=== PATIENT | female | born 1985 ===

== ENCOUNTER 2024-12-31 17:37 | Outpatient (REF) | payer OTHER, SELFPAY ==
--- OUTSIDE RECORDS SUMMARY | 2024-12-26 13:01 | XMS_ITS | Encounter Summary ---
Author Organization [facility] Address [address] [place] [address] Care Team Providers Care Cra Officer Name Role Phone Physician, Pcp Unknown Primary Care Provider Giselle vailable Reason for Visit * Reason Comments IV Medication PT HAS PICC FOR IV V ANCO, PT'S OWN SUPPLY IS FROZEN AND HAS DOSE DUE AT 1400 TODAY Encounter Details Date Type Department Care Team (Late st Contact Info) Description 12/26/2024 1:01 PM EDT - 12/26/2024 3:33 PM EDT Emergency [facility] [address] [place] [address] Jax Crandall MD [address] [place] [address] Bacteremia (Primary Dx) Discharge Disposition: Home or Self Care Social History Tobacco Use Types Packs/Day Years Used Date Smoking Tobacco: Never Smokeless Tobacco: Never Alcohol Use Standard Drinks/Week Comments Never 0 (1 standard drink = 0.6 oz pur e alcohol) Interpersonal Safety Answer Date Record ed Physical Abuse Unrecognized value 12/21/2024 Verbal Abuse Unrecognized value 12/21/2024 Comments Unknown Sex and Gender Information Value Date Recorded Sex Assigned at Not on file Legal Sex Female 5:58 AM EST Gender Identity Not on file Sexual Orientation Not on file documented as of this encounter Last Filed Vital Signs Vital Sign Reading Time Taken Comments Blood Pressure 133/85 12/26/2024 1:15 PM EDT Pulse 102 12/26/2024 1:15 PM EDT Temperature 37.2 C (99 F) 12/26/2024 1:15 PM EDT Respiratory Rate 18 12/26/2024 1:15 PM EDT Oxygen Saturation 97% 12/26/2024 1:15 PM EDT Inhaled Oxygen Concentration - - Weight 81.2 kg (179 lb) 12/26/2024 1:15 PM EDT Height 157.5 cm (5' 2 ) 12/26/2024 1:15 PM EDT Body Mass Index 32.74 12/26/2024 1:15 PM EDT documented in this encounter Functional Status * Calculated C-SSRS Risk Score (Lifetime/Recent) Answer Date of Assessment Author No Risk Indicated 12/26/2024 1:00 PM EDT Reggie Torrez RN * [place] Suicide Severity Rating Scale (Screener/Recent Self-Report) Question Answer Date of Assessment Author 1. Wish to be (Past 1 Month) No 025 1:00 PM EDT Reggie Torrez RN 2. Non-Specific Active Suici kirby Thoughts (Past 1 Month) No 12/26/2024 1:00 PM EDT Reggie Torrez RN 6. Suicidal Behavior (Lifetime) No 1:00 PM EDT Reggie Torrez RN documented as of this encounter Discharge Instructions * Discharge Instructions* Jax Crandall MD - 12/26/2024 1:37 PM EDT DIAGNOSIS / RESULTS / PROCEDURES (what was done): You came to the ED for a dose of IV antibiotics. You received your dose and are being discharged. INSTRUCTIONS (what you need to do): If your symptoms get worse, or you have any new or different concerns, return to the ED immediately. MEDICATIONS (what you need to take): No medications were added at this visit. Continue taking any prescription medications as prescribed documented in this encounter Medications at Time of Discharge Adderall XR 30 mg 24 hr capsule Take 1 capsule (30 mg total) by mouth 1 (one) time each day in the morning. 03/04/2024 cloNIDine (CATAPRES) 0.1 mg tablet Take 1 tablet (0.1 mg total) by mouth 2 (two) times a day. 12/20/2024 hydrOXYzine pamoate (VISTARIL) 25 mg capsule Take 1 capsule (25 mg total) by mouth. 03/04/2024 vancomycin 1,000 mg in sodium chloride 0.9 % 250 mL IVPB Infuse 1,000 mg into a venous catheter every 8 (eight) hours for 13 days. Stop date 01/0612/25/2024 01/07/2025 documented as of this encounter Discharge Disposition Disposition Code Departure Means Destination Comment s Home or Self Care documented in this encounter Progress Notes * Sri Lara RN - 12/26/2024 1:44 PM EDT PICC LINE DRESSING CHANGED. * Reggie Torrez RN - 12/26/2024 1:00 PM EDT Patient presents to receive her dose of iv antibiotics. Vanco that was sent home is frozen. Nikhil picc line to right arm * Jax Crandall MD - 12/26/2024 12:55 PM EDT Emergency Medicine Note Patient Name: Nevaeh Collier Initial Evaluation: 12/26/2024 : 1985 Patient's PCP: Pcp Unknown Physician Emergency Physician: Jax Crandall MD History of Present Illness Chief Complaint: Chief Complaint Patient presents with IV Medication PT HAS PICC FOR IV VANCO, PT'S OWN SUPPLY IS FROZEN AND HAS DOSE DUE AT 1400 TODAY HPI: 39-year-old female, recent hospitalization for pyelonephritis and infected kidney stone, discharged on vancomycin for bacteremia presents for IV antibiotic dose. Patient currently receiving vancomycin 1 g every 8 hours. The patient's last dose at home was accidentally placed in the freezer. She is getting another shipment from [email or web address] but would not arrive in time for her afternoon dose. Denies any fevers chills new symptoms or complaints. Previous History Medical History[1] Surgical History[2] Social History[3] Family History[4] is allergic to zofran [ondansetron hcl]. Medications Ordered Prior to Encounter[5] Physical Exam ED Triage Vitals [12/26/24 1315] Temp Heart Rate Resp BP 37.2 ??C (99 ??F) 102 18 133/85 SpO2 Temp Source Heart Rate Source Patient Position 97 % Oral -- Sitting BP Location FiO2 (%) Left arm -- GENERAL: Well-Appearing SKIN: Warm, dry, normal for ethnicity. No rashes. Right upper extremity PICC line in place, no surrounding erythema warmth fluctuance induration. HEENT: Normal sclera, noninjected nonicteric CHEST: Normal peripheral perfusion, no edema PULMONARY: Normal respiratory effort ABDOMINAL: Nondistended NEURO: Alert and oriented, moving all extremities equally PSYCHIATRIC: Normal affect, fluid speech, good eye contact and appropriate demeanor. Results Labs Reviewed - No data to display Abnormal Labs Reviewed - No data to display No orders to display I have discussed the incidental/abnormal imaging and/or lab abnormalities with the patient and haveinstructed them the need for further evaluation and workup with their primary care doctor. Medical Decision Making Differential Diagnosis: Bacteremia, pyelonephritis MDM: 39-year-old female with bacteremia and pyelonephritis currently taking vancomycin 1 g every 8 hours presents for IV medication dosing. Will plan to give patient her vancomycin dose. She is not have any new symptoms concerning for worsening infection, no labs indicated. Clinical Impression: Bacteremia SEPSIS Exemption: [ x ] It is unlikely this patient has sepsis at the time of my evaluation. Medications heparin (PF) 100 unit/mL flush 300 Units (has no administration in time range) vancomycin (VANCOCIN) 1,000 mg in sodium chloride 0.9 % 250 mL IVPB (1,000 mg intravenous New Bag 12/26/24 1340) Clinical Impressions as of 12/26/24 1518 Bacteremia Procedures Procedures Diagnosis 1. Bacteremia Disposition Discharge ED Prescriptions None Jax Crandall MD 12/26/24 1341 [1] Past Medical History: Diagnosis Date Kidney stones [2] History reviewed. No pertinent surgical history. [3] Social History Tobacco Use Smoking status: Never Smokeless tobacco: Never Substance Use Topics Alcohol use: Never Drug use: Never [4] No family history on file. [5] Current Facility-Administered Medications on File Prior to Encounter Medication Dose Route Frequency Provider Last Rate Last Admin [DISCONTINUED] acetaminophen (TYLENOL) tablet 650 mg 650 mg oral q6h PRN Bobby Hawk MD 650 mg at12/22/24 1522 [DISCONTINUED] amphetamine-dextroamphetamine XR (ADDERALL XR) 24 hr capsule 30 mg 30 mg oral q AM Laureen Gibbons NP [DISCONTINUED] cloNIDine (CATAPRES) tablet 0.1 mg 0.1 mg oral BID LATOSHA Fish 0.1 mg at 12/24/242101 [DISCONTINUED] doxylamine (UNISOM) tablet 25 mg 25 mg oral Nightly PRN LATOSHA Shaver 25 mg at12/24/242213 [DISCONTINUED] enoxaparin (LOVENOX) injection 40 mg 40 mg subcutaneous Nightly LATOSHA Fish 40 mg at 12/24/242101 [DISCONTINUED] HYDROmorphone (DILAUDID) injection 0.5 mg 0.5 mg intravenous q4h PRN Bobby Hawk MD 0.5 mg at 12/22/242153 [DISCONTINUED] HYDROmorphone (DILAUDID) injection 1 mg 1 mg intravenous q4h PRN Bobby Hawk MD 1 mg at 12/24/24 0015 [DISCONTINUED] metoclopramide (REGLAN) injection 10 mg 10 mg intravenous q6h PRN Laureen Gibbons NP [DISCONTINUED] vancomycin (VANCOCIN) 1,000 mg in sodium chloride 0.9 % 250 mL IVPB 1,000 mg intravenous q8h Alia Lam MD Stopped at 12/25/24 1532 Current Outpatient Medications on File Prior to Encounter Medication Sig Dispense Refill Adderall XR 30 mg 24 hr capsule Take 1 capsule (30 mg total) by mouth 1 (one) time each day in the morning. cloNIDine (CATAPRES) 0.1 mg tablet Take 1 tablet (0.1 mg total) by mouth 2 (two) times a day. hydrOXYzine pamoate (VISTARIL) 25 mg capsule Take 1 capsule (25 mg total) by mouth. vancomycin 1,000 mg in sodium chloride 0.9 % 250 mL IVPB Infuse 1,000 mg into a venous catheter every 8 (eight) hours for 13 days. Stop date 01/06 Jax Crandall MD 12/26/24 0058 documented in this encounter Plan of Treatment Not on file documented as of this encounter Visit Diagnoses Diagnosis Bacteremia- Primary documented in this encounter Administered Medications Inactive Administered Medications - up to 3 most recent administrations Medication Order MAR Action Action Date Dose Rate Site heparin (PF) 100 unit/mL flush 300 Units 300 Units (3 mL), intra-catheter, Once, On Avril 12/26/24 at 1346, For 1 dose Given 12/26/2024 3:31 PM EDT 300 Units vancomycin (VANCOCIN) 1,000 mg in sodium chloride 0.9 % 250 mL IVPB 1,000 mg, intravenous, at 250 mL/hr, Administer over 60 Minutes, Once, On Avril 12/26/24 at 1308, For 1 dose, Indication: Urinary Tract/Genitourinary New Bag 12/26/2024 1:40 PM EDT 1,000 mg 250 mL/hr documented in this encounter Active and Recently Administered Medications Times are shown in EDT. Scheduled Medication Order 12/24/2024 12/25/2024 12/26/2024 heparin (PF) 100 unit/mL flush 300 Units (COMPLETED) 300 Units (3 mL), intra-catheter, Once, On Avril 12/26/24 at 1346, For 1 dose 1531 (Given - Provid er: Joelle Zaidi RN) vancomycin (VANCOCIN) 1,000 mg in sodium chloride 0.9 % 250 mL IVPB (COMPLETED) 1,000 mg, intravenous, at 250 mL/hr, Administer over 60 Minutes, Once, On Avril 12/26/24 at 1308, For 1 dose, Indication: Urinary Tract/Genitourinary 1340 (New Bag - Prov ider: Sri Lara RN)1533 (Stopped - Provider: Joelle Zaidi RN) documented in this encounter Care Teams Cra Officer Relationship Specialty Start Date End Date Physician, Pcp Unknown PCP - General 12/21/24 documented as of this encounter
[2024-12-31 18:47] LABS: MANUAL DIFF FLAG NO
[2024-12-31 18:54] LABS: Hematocrit 35.7 % (37.0-47.0); Hemoglobin 12.2 g/dl (12.0-16.0); Imm Gran Abs Auto 0.07 X10*3/uL (0.00-0.03); Imm Gran Pct Auto 0.6 % (0.0-0.4); Lymphocytes Absolute Auto 1.9 X10*3/uL (1.2-4.9); Mean Corpuscular HGB Conc 34.2 g/dl (31.0-35.0); Mean Corpuscular Hemoglobin 30.3 pg (27.0-33.0); Mean Corpuscular Volume 88.8 fL (80.0-98.0); NRBC Abs Auto 0.000 X10*3/uL (0.0-0.012); NRBC Pct Auto 0.0 /100WBC (0.0-0.2); Platelet Count 408 X10*3/uL (160-400); Red Blood Count 4.02 X10*6/uL (4.20-5.50); White Blood Count 11.1 X10*3/uL (4.8-10.8)
--- OUTSIDE RECORDS SUMMARY | 2024-12-31 19:07 | XMS_ITS | Clinical Summary ---
Author Organization [facility] Address [address] [place] [address] Phone Care Team Providers Care Installation Tech Name Role Phone Physician, Pcp Unknown Primary Care Provider Giselle vailable Allergies Active Allergy Reactions Criticality Noted Date Comments Ondansetron Hcl Nausea And Vomiting 10/14/2024 Medications cloNIDine (CATAPRES) 0.1 mg tablet Take 1 tablet (0.1 mg total) by mouth 2 (two) times a day. 12/20/2024 Active Adderall XR 30 mg 24 hr capsule Take 1 capsule (30 mg total) by mouth 1 (one) time each day in the morning. 03/04/2024 Active hydrOXYzine pamoate (VISTARIL) 25 mg capsule Take 1 capsule (25 mg total) by mouth. 03/04/2024 Active vancomycin 1,000 mg in sodium chloride 0.9 % 250 mL IVPB Infuse 1,000 mg into a venous catheter every 8 (eight) hours for 13 days. Stop date 01/0612/25/2024 01/08/20 25 Active Active Problems Problem Noted Date Diagnosed Date Pyelonephritis 12/21/2024 Encounters Date Type Department Care Team Description 12/30/2024 Telephone Infectious Disease - [place] [address] [place] [address] Jose L Chahal LPN 12/26/2024 1:01 PM EDT - 12/26/2024 3:33 PM EDT Emergency [facility] Emergency [address] [place] [address] Jax Cranadll MD Bacteremia (Primary Dx) Discharge Disposition: Home or Self Care 12/21/2024 7:41 PM EDT Anesthesia Event [facility] Main OR [address] [place] [address] Al RonnieDO 12/21/2024 7:00 PM EDT - 12/21/2024 7:50 PM EDT Surgery [facility] Main OR [address] [place] [phone] Bobby Hawk MD CYSTOSCOPY,LEFT RETROGRADE, LEFT STENT PLACEMENT 12/21/2024 3:05 PM EDT - 12/25/2024 4:35 PM EDT Hospital Encounter [facility] [address] [place] [phone] Jude Stearns MD Zipagan, James T, MD Seralathan, Manikandan, MD Pyelonephritis (Primary Dx); Kidney stone on left side; Calculus of left kidney; Bacteremia Discharge Disposition: Home-Health Care [facility] [place] 10/14/2024 8:10 PM EDT - 10/14/2024 11:44 PM EDT Emergency [facility] Emergency [address] [place] [phone] Jax Crandall MD Kidney stone (Primary Dx); Right lower quadrant abdominal pain Discharge Disposition: Home or Self Care from Last 3 Months Medical History Medical History Date Comments Kidney stones Social History Tobacco Use Types Packs/Day Years Used Date Smoking Tobacco: Never Smokeless Tobacco: Never Tobacco Cessation:Counseling Given: Not Answered Alcohol Use Standard Drinks/Week Comments Never 0 (1 standard drink = 0.6 oz pur e alcohol) Interpersonal Safety Answer Date Record ed Physical Abuse Unrecognized value 12/21/2024 Verbal Abuse Unrecognized value 12/21/2024 Comments Unknown Sex and Gender Information Value Date Recorded Sex Assigned at Not on file Legal Sex Female 5:58 AM EST Gender Identity Not on file Sexual Orientation Not on file Obstetrics History Last Filed Vital Signs Vital Sign Reading [...] Mass Index 32.74 12/26/2024 1:15 PM EDT Plan of Treatment Health Maintenance Due Date Last Done Comments Breast Cancer Screening 1984 Cervical Cancer Screening: Pap Smear 2005 Hepatitis B Vaccines (2 of 3 - 19+ 3-dose series) 09/29/2010 09/01/2010 HPV Vaccines (1 - 3-dose SCDM series) 10/11/2011 Cholesterol Screening (Lipid Panel) 02/27/2022 HIV Screening 02/27/2022 Hepatitis C Screening 02/27/2022 Social Influencers of Health Screening 02/27/2022 Depression Screening 03/27/2024 COVID-19 Vaccine ( - 2024- season) 2024 06/27/2022, 10/16/2020, 09/25/2020 Influenza Vaccine (#1) 2024 , 01/25/2016, 02/04/2015, Additional history exists Hypertension/CHF/CAD Annual BMP Blood Test 12/25/2025 12/25/2024, 12/24/2024, 12/23/2024, Additional history exists DTaP,Tdap,and Td Vaccines (4 - Td or Tdap) 12/29/2030 12/29/2020, 06/06/2016, 10/01/2011 RSV Immunization Adult Patients (1 - 1-dose 75+ series) 10/11/2059 MMR Vaccines Aged Out 03/05/2021, 09/01/2010 No lo nger eligible based on patient's age to complete this topic HIB Vaccines Aged Out No longer eligi ble based on patient's age to complete this topic Hepatitis A Vaccines Aged Out No long er eligible based on patient's age to complete this topic IPV Vaccines Aged Out No longer eligi ble based on patient's age to complete this topic Meningococcal ACWY Vaccine Aged Out N o longer eligible based on patient's age to complete this topic Meningococcal B Vaccine Aged Out No l onger eligible based on patient's age to complete this topic Pneumococcal Vaccine: Pediatrics (0 to 5 Years) and At-Risk Patients (6 to 49 Years) Aged Out No longer eligible based on patient's age to complete this topic RSV Immunization Patients Under 20 months Aged Out No longer eligible based on patient's age to complete this topic Varicella Vaccines Aged Out No longer eligible based on patient's age to complete this topic Medical Devices Implanted Type Area Sky Line Yarder Device Identifier Shelf Expiration Date Model / Serial / Lot Stent Uret Stretch Vl 7fr 22-3 - Sna - [id number] Implanted:Qty: 1 on 12/21/2024 by Bobby Hawk MD at [facility] Stents Left: Ureter [employer]GYNECOLG Y 09/19/2027 [id number] / NA / [id number] Description:NO STRING ATTACH ED Procedures Procedure Name Priority Date/Time Associated Diagnosis Comments BASIC METABOLIC PANEL Routine 12/25/2024 5:43 AM EDT VANCOMYCIN, TROUGH Timed 12/24/2024 8: 58 PM EDT CBC WITH AUTO DIFFERENTIAL Routine 12/24/2024 7:23 AM EDT BASIC METABOLIC PANEL Routine 12/24/2024 7:23 AM EDT CBC AND DIFFERENTIAL Routine 12/24/2024 7:23 AM EDT TRANSTHORACIC ECHOCARDIOGRAM (TTE) COMPLETE Routine 12/23/2024 3:40 PM EDT Bacteremia CBC WITH AUTO DIFFERENTIAL Routine 12/23/2024 5:54 AM EDT BASIC METABOLIC PANEL Routine 12/23/2024 5:54 AM EDT CBC AND DIFFERENTIAL Routine 12/23/2024 5:54 AM EDT CULTURE BLOOD STAT 12/22/2024 12:04 PM EDT CULTURE BLOOD STAT 12/22/2024 12:04 PM EDT CBC WITH AUTO DIFFERENTIAL Routine 12/22/2024 6:47 AM EDT BASIC METABOLIC PANEL Routine 12/22/2024 6:47 AM EDT CBC AND DIFFERENTIAL Routine 12/22/2024 6:47 AM EDT POCT GLUCOSE BLOOD Routine 12/21/2024 9: 24 PM EDT CULTURE URINE Routine 12/21/2024 8:11 PM EDT Calculus of left kidney XR UROGRAM RETROGRADE Routine 12/21/2024 8:04 PM EDT TH AN LMA(NO CHARGE) Routine 12/21/2024 7:54 PM EDT CYSTOSCOPY INSERT STENT URETER 12/21/2024 7:40 PM EDT Calculus of ureter LACTATE, WITH REFLEX STAT 12/21/2024 5:58 PM EDT BLOOD CULTURE PATHOGENS BY PCR Routine 12/21/2024 5:58 PM EDT CULTURE BLOOD STAT 12/21/2024 5:58 PM EDT CULTURE BLOOD STAT 12/21/2024 5:[address] ABDOMEN PELVIS WO CONTRAST STAT 12/21/2024 4:57 PM EDT POC , URINE DIAGNOSTIC STAT 12/21/2024 4:08 PM EDT URINALYSIS WITH REFLEX MICROSCOPIC STAT 12/21/2024 4:02 PM EDT URINALYSIS WITH REFLEX MICROSCOPIC STAT 12/21/2024 4:02 PM EDT MANUAL DIFFERENTIAL - SYSMEX WAM STAT 12/21/2024 3:47 PM EDT CBC WITH AUTO DIFFERENTIAL STAT 12/21/2024 3:47 PM EDT CBC AND DIFFERENTIAL STAT 12/21/2024 3:47 PM EDT COMPREHENSIVE METABOLIC PANEL STAT 12/21/2024 3:[address] ABDOMEN PELVIS W CONTRAST STAT 10/14/2024 8:34 PM EDT CBC WITH AUTO DIFFERENTIAL STAT 10/14/2024 6:42 PM EDT COMPREHENSIVE METABOLIC PANEL STAT 10/14/2024 6:42 PM EDT LIPASE STAT 10/14/2024 6:42 PM EDT CBC AND DIFFERENTIAL STAT 10/14/2024 6:42 PM EDT CARPENTER URINE CULTURE TUBE STAT 10/15/19 5:26 PM EDT URINALYSIS WITH REFLEX MICROSCOPIC AND CULTURE STAT 10/14/2024 5:26 PM EDT URINALYSIS WITH REFLEX MICROSCOPIC AND CULTURE STAT 10/14/2024 5:26 PM EDT CULTURE URINE STAT 10/14/2024 5:26 PM EDT POC , URINE DIAGNOSTIC STAT 10/14/2024 5:25 PM EDT from Last 3 Months Results * (ABNORMAL) Basic metabolic panel (12/25/2024 5:43 AM EDT) Only the most recent of4 resultswithin the time period is included. [facility] Signature Sodium 138 133 - 145 mmol/L LAB CHEMISTRY METHOD 12/25/2024 8:11 AM EDT [facility] Potassium 3.8 3.5 - 5.5 mmol/L LAB CHEMISTRY METHOD 12/25/2024 8:11 AM [facility] Chloride 103 96 - 110 mmol/L LAB CHEMISTRY METHOD 12/25/2024 8:11 AM [facility] CO2 29 21 - 32 mmol/L LAB CHEMISTRY METHOD 12/25/2024 8:11 AM [facility] Anion Gap 6 3 - 11 LAB CHEMISTRY METHOD 12/25/2024 8:11 AM [facility] Glucose 103(H) 70 - 100 mg/dL LAB CHEMISTRY METHOD 12/25/2024 8:11 AM [facility] BUN 11 5 - 25 mg/dL LAB CHEMISTRY METHOD 12/25/2024 8:11 AM [facility] Creatinine 0.50 0.50 - 1.10 mg/dL LAB CHEMISTRY METHOD 12/25/2024 8:11 AM [facility] eGFR 122 >=60 mL/min/1. 73m2 LAB CHEMISTRY METHOD 12/25/2024 8:11 AM [facility] Comment:Calculation based on the Chronic Kidney Disease Epidemiology Collaboration (CKD-EPI) equation refit without adjustment for race. BUN/Creatinine Ratio 22.0 LAB CHEMISTRY METHOD 12/25/2024 8:11 AM [facility] Calcium 8.9 8.5 - 10.5 mg/dL LAB CHEMISTRY METHOD 12/25/2024 8:11 AM [facility] Blood Venous blood specimen / Unknown Venipuncture / Unknown 12/25/2024 5:43 AM EDT 12/25/2024 6:30 AM EDT us Yesi REINA LAB BLOOD ORDERABLES Final Result [facility] [address] [place] [address], * Vancomycin, trough Please draw after 2100 but before the 2200 dose is hung (12/24/2024 8:58 PM EDT) [facility] Vancomycin Trough 15.8 10.0 - 20.0 mcg/mL LAB CHEMISTRY METHOD 12/24/2024 9:39 PM EDT [facility] Blood Venous blood specimen / Unknown Venipuncture / Unknown 12/24/2024 8:58 PM EDT 12/24/2024 9:14 PM EDT us Alia Lam MD LAB BLOOD ORDERABLES Final Resul t [facility] [address] [place] [address], * (ABNORMAL) CBC auto differential (12/24/2024 7:23 AM EDT) Only the most recent of5 resultswithin the time period is included. [facility] WBC 7.8 4.8 - 10.8 K/mcL LAB HEMETOLOGY METHOD 12/24/2024 8:19 AM EDT [facility] RBC 4.20 3.80 - 4.80 M/mcL LAB HEMETOLOGY METHOD 12/24[facility]24 [facility] Hemoglobin 12.6 11.5 - 16.0 g/dL LAB HEMETOLOGY METHOD 12/24/2024 8:19 AM EDT [facility] Hematocrit 37.2 35.0 - 47.0 % LAB HEMETOLOGY METHOD 12/24/2024 8:19 AM [facility] MCV 88.8 79.0 - 98.0 FL LAB HEMETOLOGY METHOD 12/24/2024 8:19 AM [facility] MCH 30.1 27.0 - 32.0 pcg LAB HEMETOLOGY METHOD 12/24/2024 8:19 AM EDT [facility] MCHC 33.9 32.0 - 37.0 g/dL LAB HEMETOLOGY METHOD 12/24/2024 8:19 AM [facility] RDW 11.6 11.0 - 15.0 % LAB HEMETOLOGY METHOD 12/24/2024 8:19 AM [facility] Platelets 319 130 - 400 K/mcL LAB HEMETOLOGY METHOD 12/24/2024 8:19 AM [facility] MPV 9.6 7.0 - 11.0 FL LAB HEMETOLOGY METHOD 12/24/2024 8:19 AM [facility] NRBC 0.0 <1.0 % LAB HEMETOLOGY METHOD 12/24/2024 8:19 AM [facility] NRBC Absolute 0.00 <0.10 K/mcL LAB HEMETOLOGY METHOD 12/24/2024 8:19 AM [facility] Neutrophils Relative 59.5 % LAB HEMETOLOGY METHOD 12/24/2024 8:19 AM [facility] Lymphocytes Relative 24.4 % LAB HEMETOLOGY METHOD 12/24/2024 8:19 AM [facility] Monocytes Relative 12.5 % LAB HEMETOLOGY METHOD 12/24/2024 8:19 AM [facility] Eosinophils Relative 2.2 % LAB HEMETOLOGY METHOD 12/24/2024 8:19 AM [facility] Basophils Relative 0.9 % LAB HEMETOLOGY METHOD 12/24/2024 8:19 AM [facility] Immature Granulocytes Relative 0.5 % LAB HEMETOLOGY METHOD 12/24/2024 8:19 AM [facility] Neutrophils Absolute 4.61 1.50 - 7.00 K/mcL LAB HEMETOLOGY METHOD 12/24/2024 8:19 AM [facility] Lymphocytes Absolute 1.89 1.00 - 5.00 K/mcL LAB HEMETOLOGY METHOD 12/24/2024 8:19 AM EDT [facility] Monocytes Absolute 0.97 0.20 - 1.00 K/mcL LAB HEMETOLOGY METHOD 12/24/2024 8:19 AM EDT [facility] Eosinophils Absolute 0.17 0.00 - 0.50 K/mcL LAB HEMETOLOGY METHOD 12/24/2024 8:19 AM EDT [facility] Basophils Absolute 0.07 0.00 - 0.20 K/mcL LAB HEMETOLOGY METHOD 12/24/2024 8:19 AM EDT [facility] Immature Granulocytes Absolute 0.04(H) 0.00 - 0.03 K/mcL LAB HEMETOLOGY METHOD 12/24/2024 8:19 AM EDT [facility] Blood Venous blood specimen / Unknown Venipuncture / Unknown 12/24/2024 7:23 AM EDT 12/24/2024 7:39 AM EDT us Yesi REINA LAB BLOOD ORDERABLES Final Result [facility] [address] [place] [address], [place] [phone] * (ABNORMAL) TRANSTHORACIC ECHOCARDIOGRAM (TTE) COMPLETE (12/23/2024 3:40 PM EDT) BSA 1.87 m2 CV PACS Left Atrium Minor Goldsmith 5.1 cm CV PACS Left Atrium Major Goldsmith 5.2 cm CV PACS LA Area Sys (A2C) 16 cm2 CV PACS LA Area Sys (A4C) 14 cm2 CV PACS LA Volume (BP) 36 mL CV PACS LA Size 3.8 cm CV PACS RA Area 11.5 cm2 CV PACS RA 2D Volume 22 mL CV PACS AV Mean Gradient 5 mmHg CV PACS AV Mean Gradient 5 mmHg CV PACS Ao VTI 27.8 cm CV PACS AV Peak Octavio 1.7 m/s CV PACS AV Peak Gradient 11 mmHg CV PACS AV Area Continuity Equation 2.4 cm2 CV PACS AV Area Peak Velocity 2.2 cm2 CV PACS Aortic Arch 2.4 cm CV PACS Ascending Aorta 3.9 cm CV PACS Aortic Sinus Valsalva 3.2 cm CV PACS IVC Proximal 2.0 cm CV PACS IVSD 1.2(A) 0.6 - 0.9 cm CV PACS LVIDD 4.7 3.8 - 5.2 cm CV PACS LVIDS 3.2 2.2 - 3.5 cm CV PACS LVOT Diameter 2.0 cm CV PACS LVOT Mean Octavio 0.8 m/s CV PACS LVOT Mean Grad 3 mmHg CV PACS LVOT Mean Grad 3 mmHg CV PACS LVOT Peak VTI 21.5 cm CV PACS LVOT Peak Octavio 1.1 m/s CV PACS LVOT Peak Gradient 5 mmHg CV PACS LVPWD 1.1(A) 0.6 - 0.9 cm CV PACS MV E' Tissue Velocity Lateral 23 cm/s CV PACS MV E' Tissue Velocity Septal 8 cm/s CV PACS LVOT Area 3.1 cm2 CV PACS LVOT Stroke Volume 68 mL CV PACS MV Deceleration [place] 4.6 m/s2 CV PACS E Wave Deceleration Time 212 119 - 242 ms CV PACS MV PHT 62 ms CV PACS MV Peak A Octavio 0.96 m/s CV PACS MV Peak E Octavio 0.96 m/s CV PACS MV Mean Gradient 2 mmHg CV PACS MV Mean Gradient 2 mmHg CV PACS MV Mean Gradient 2 mmHg CV PACS MV Mean Gradient 2 mmHg CV PACS MV VTI 29.5 cm CV PACS Mitral Valve Max Velocity 1.0 m/s CV PACS MV Peak Gradient 4 mmHg CV PACS MV Area PHT 3.6 cm2 CV PACS MV Area Continuity Equation 2.3 cm2 CV PACS PV Acceleration Time 130 ms CV PACS PV Acceleration Time 134 ms CV PACS PV Acceleration Time 132 ms CV PACS PV Mean Gradient 2 mmHg CV PACS PV VTI 19.8 cm CV PACS PV Peak Velocity 1.1 m/s CV PACS PV Peak Gradient 4 mmHg CV PACS RV Diastolic Basal Dimension 3.3 2.5 - 4.1 cm CV PACS RV S' 12 cm/s CV PACS TAPSE 27 mm CV PACS TR Peak Velocity 2.74 m/s CV PACS TR Peak Gradient 30 mmHg CV PACS E/E' Ratio Septal 12 CV PACS E/E' Ratio Averaged 8 CV PACS LVOT Stroke Index 38 mL/m2 CV PACS LA Dimension Index 2D 2.1 cm/m2 CV PACS Relative Wall Thickness ratio 0.47 CV PACS LVOT:AV VTI Index 0.77 CV PACS FS 32 % CV PACS LV Mass 2D 200 g CV PACS Ascending Aorta Index 2.15 cm/m2 CV PACS MV VTI:LVOT VTI ratio 1.4 CV PACS LVOT flow 251 mL/s CV PACS RA 2D Volume Index 12 mL/m2 CV PACS LEONIDAS Index (VTI) 1.34 cm2/m2 CV PACS LEONIDAS Index (Pk Octavio) 1.22 cm2/m2 CV PACS LVIDD Index 2.60 cm/m2 CV PACS LVIDS Index 1.77 cm/m2 CV PACS AV Velocity Ratio 0.65 CV PACS E/A Ratio 1.0 CV PACS E/E' Ratio Lateral 4 CV PACS LA Volume Index (BP) 20 mL/m2 CV PACS LV Mass Index 2D 110 g/m2 CV PACS Right Ventricular Peak Systolic Pressure 38 mmHg CV PACS Est. RA Pressure 8 mmHg CV PACS Anatomical Region Laterality Modality Ultrasound Narrative 12/23/2024 4:39 PM EDT Left ventricle cavity size is normal. Left ventricular systolic function is in the normal range with an ejection fraction of 60-65%. No regional LV wall motion abnormalities noted. Left ventricle mild concentric hypertrophy. 11-12 mm. Right ventricle cavity is normal. Right ventricular systolic function is normal. The ascending aorta is dilated (3.9 cm). The aorta at the sinuses of Valsalva is normal at 3.2 cm. Both atria are normal. No significant valvular abnormalities. No obvious vegetation. The aortic valve appears to be tricuspid. No prior echo for comparison. Left Ventricle Left ventricle cavity size is normal. There is mild concentric hypertrophy. Systolic function is normal with an ejection fraction of 60-65%. There are no regional LV wall motion abnormalities. There is no diastolic dysfunction. Right Ventricle Right ventricle cavity appears normal. Systolic function is normal. Left Atrium Left atrium cavity size is normal. Right Atrium Right atrium cavity is normal. Mitral Valve The leaflets are mildly thickened. There is trace regurgitation. There is no evidence of mitral valve stenosis. Tricuspid Valve Tricuspid valve structure is normal. There is trace regurgitation. There is no evidence of tricuspid valve stenosis. The right ventricular systolic pressure is normal. Aortic Valve The aortic valve is trileaflet. There is no regurgitation or stenosis. Pulmonic Valve There is no regurgitation or stenosis. Ascending Aorta The ascending aorta is (3.9 cm). Pericardium Pericardium appears normal. There is no pericardial effusion. Study Details Overall the study quality was adequate. Yesi REINA CV ECHO PROCEDURES Final Re sult * Culture blood (12/22/2024 12:04 PM EDT) Only the most recent of4 resultswithin the time period is included. Culture, Blood No growth at 5 days 12/27/2024 1:01 PM EDT [facility] Blood Venous blood specimen / Unknown Venipuncture / Unknown 12/22/2024 12:04 PM EDT 12/22/2024 12:24 PM EDT us Pepe Cage MD LAB MICROBIOLOGY - GENERAL OR DERABLES Final Result Performing Organization Address [facility] de Phone Number [facility] [address] [place] [address], [place] [phone] * (ABNORMAL) POCT Glucose, blood (12/21/2024 9:24 PM EDT) Glucose POCT 115(H) 70 - 100 mg/dL 12/21/2024 9:24 PM EDT [facility] Blood Capillary blood specimen / Unknown 12/21/2024 9:24 PM EDT 12/21/2024 9:25 PM EDT us Pepe Cage MD LAB POINT OF CARE TE ST DOCKED DEVICE UNSOLICITED RESULTS Final Result Performing Organization Address City/[facility] Co de Phone Number [facility] [address] [place] [address], [place] [phone] * Culture urine (12/21/2024 8:11 PM EDT) Only the most recent of2 resultswithin the time period is included. Culture, Urine No growth 12/23/2024 11:06 AM EDT [facility] Urine Left kidney structure / Unknown 12/21/2024 8:11 PM EDT 12/21/2024 8:25 PM EDT Bobby Hawk MD LAB MICROBIOLOGY - GENERAL ORDER ALEN Final Result Performing Organization Address [facility] Co de Phone Number [facility] [address] [place] [address], [place] [phone] * XR Urogram Retrograde (12/21/2024 8:04 PM EDT) Anatomical Region Laterality Modality Body Radio Fluoroscop y 12/23/2024 8:10 AM EDT Narrative 12/23/2024 8:11 AM EDT Fluoroscopic spot radiographs obtained during a left endourologic procedure are submitted. No radiologist consultation was requested or provided during this procedure and there is no radiologist professional charge. This report is generated for documentation purposes only. The dose-area product for this procedure was 0.6814 Gy*cm2. PQRI CPT II G9500 -------- FINAL REPORT -------- Dictated By: Mak Hayward Dictated Date: 12/23/2024 08:10 ET Assigned Physician: Mak Hayward Reviewed and Electronically Signed By: Mak Hayward Signed Date: 12/23/2024 08:11 ET Workstation ID: [id number] Transcribed By: Self Edit Transcribed Date: 12/23/2024 08:10 ET Procedure Note Mak Hayward MD - 12/23/2024 Fluoroscopic spot radiographs obtained during a left endourologicprocedure are submitted. No radiologist consultation was requested orprovided during this procedure and there is no radiologist professionalcharge. This report is generated for documentation purposes only. The dose-area product for this procedure was 0.6814 Gy*cm2. PQRI CPT II G9500 -------- FINAL REPORT -------- Dictated By: Mak Hayward Dictated Date: 12/23/2024 08:10 ET Assigned Physician: Mak Hayward Reviewed and Electronically Signed By: Mak Hayward Signed Date: 12/23/2024 08:11 ET Workstation ID: [id number] Transcribed By: Self Edit Transcribed Date: 12/23/2024 08:10 ET us Bobby Hawk MD IMG FLUOROSCOPY PROCEDURES Final Result * TH AN LMA(NO CHARGE) (12/21/2024 7:54 PM EDT) Ronnie Ferguson DO - 12/21/2024 7:54 PM EDT Ronnie Melendez DO 12/21/2024 7:54 PM General Information and Staff Patient location during procedure: OR Anesthesiologist: Ronnie Melendez DO Performed: anesthesiologist Performed by: Ronnie Melendez DO Authorized by: Ronnie Melendez DO Intubation Airway not difficult Urgency: elective Final Airway Details Number of attempts at approach: 1 LMA Size: 4 LMA Type: LMA Seal Pressure: Final airway type: LMA Indications and Patient Condition Indications for airway management: anesthesia Spontaneous ventilation: present Preoxygenated: yes Patient position: neutral Mask difficulty assessment: 0 - not attempted Start Time: 12/21/2024 7:54 PMStop Time: 12/21/2024 7:54 PM us Ronnie Melendez DO ANESTHESIA ORDERABLES Final Result * Lactate, with Reflex (12/21/2024 5:58 PM EDT) LACTIC ACID 1.1 0.4 - 2.0 mmol/L LAB CHEMISTRY METHOD 12/21/2024 6:41 PM EDT [facility] Blood Venous blood specimen / Unknown Venipuncture / Unknown 12/21/2024 5:58 PM EDT 12/21/2024 6:12 PM EDT Jude Stearns MD LAB BLOOD ORDERABLES Anastasia l Result Performing Organization Address [facility] Co de Phone Number [facility] [address] [place] [address], [place] [phone] * (ABNORMAL) Blood culture pathogens molecular study (12/21/2024 5:58 PM EDT) Pathologist [facility] Staphylococcus epidermidis Detected (A) Not Detected LAB MICROBIOLOGY METHOD 12/22/2024 2:20 PM EDT [facility] mecA/C Detected (A) Not Detected LAB MICROBIOLOGY METHOD 12/22/2024 2:20 PM EDT [facility] Comment:mecA/C Gene Detected : Indicates Methicillin Resistant Staphylococcus. Blood Venous blood specimen / Unknown Venipuncture / Unknown 12/21/2024 5:58 PM EDT 12/21/2024 6:13 PM EDT Jude Stearns MD LAB MICROBIOLOGY - GENERA L ORDERABLES Final Result Performing Organization Address [facility] Co de Phone Number [facility] [address] [place] [address], [place] [phone] * CT Abdomen Pelvis wo Contrast (12/21/2024 4:57 PM EDT) Anatomical Region Laterality Modality Body Computed Tomogra phy 12/21/2024 5:36 PM EDT Impressions 12/21/2024 5:36 PM EDT Impression: 1. Mild left hydroureteronephrosis down to the level of a 5 mm proximal left ureteral calculus. Left renal pelvis and proximal ureter uroepithelial wall thickening raises concern for pyelitis/ureteritis. 2. Bilateral nonobstructing renal calculi are present. This document has been electronically signed by: Jesus Lux MD on 12/21/2024 17:36:17 Narrative 12/21/2024 5:36 PM EDT INDICATION: Flank pain, kidney stone suspected Exam: Unenhanced CT abdomen and pelvis with multiplanar reformats. Comparison: 10/14/2024. Findings: CT abdomen: Lung bases are clear. Liver is free of gross focal lesions and ductal dilatation. Gallbladder is absent. Spleen appears unremarkable. Pancreas and adrenal glands appear unremarkable. Left kidney reveals mild hydroureteronephrosis down to the level of a 5 mm proximal left ureteral calculus (3; 78 and 602; 49). There is mild uroepithelial wall thickening involving the proximal ureter and renal pelvis on the left, raising the possibility of pyelitis/ureteritis. Bilateral nonobstructing renal calculi are present. No other ureteral stones. Multiple left renal cysts seen on the prior CT exam are less well delineated due to absent intravenous contrast on the current exam. No free intraperitoneal fluid or retroperitoneal masses or adenopathy. Abdominal aorta is normal caliber. Bowel loops reveal no abnormal wall thickening or distention. Colonic diverticulosis is present, without CT evidence of diverticulitis. The appendix is unremarkable. CT pelvis: Uterus and adnexal structures appear unremarkable. Urinary bladder is free of gross filling defects. No pelvic masses, fluid or adenopathy. Osseous structures reveal no destructive osseous lesions. Procedure Note Jesus Lux MD - 12/21/2024 INDICATION: Flank pain, kidney stone suspected Exam: Unenhanced CT abdomen and pelvis with multiplanar reformats. Comparison: 10/14/2024. Findings: CT abdomen: Lung bases are clear. Liver is free of gross focal lesionsand ductal dilatation. Gallbladder is absent. Spleen appears unremarkable. Pancreas and adrenal glands appear unremarkable. Left kidney reveals mild hydroureteronephrosis down to the level of a 5mm proximal left ureteral calculus (3; 78 and 602; 49). There is mild uroepithelial wall thickening involving the proximal ureter and renal pelvis on the left, raising the possibility of pyelitis/ureteritis. Bilateral nonobstructing renal calculi are present. No other ureteral stones. Multiple left renal cysts seen on the prior CT exam are lesswell delineated due to absent intravenous contrast on the current exam. No free intraperitoneal fluid or retroperitoneal masses or adenopathy. Abdominal aorta is normal caliber. Bowel loops reveal no abnormal wall thickening or distention. Colonic diverticulosis is present, without CT evidence of diverticulitis. The appendix is unremarkable. CT pelvis: Uterus and adnexal structures appear unremarkable. Urinary bladder is free of gross filling defects. No pelvic masses, fluid or adenopathy. Osseous structures reveal no destructive osseous lesions. IMPRESSION: Impression: 1. Mild left hydroureteronephrosis down to the level of a 5 mm proximal left ureteral calculus. Left renal pelvis and proximal ureter uroepithelial wall thickening raises concern for pyelitis/ureteritis. 2. Bilateral nonobstructing renal calculi are present. This document has been electronically signed by: Jesus Lux MD on 12/21/2024 17:36:17 Jude Stearns MD IMG CT PROCEDURES Final R esult * POC , urine manually resulted (12/21/2024 4:08 PM EDT) Only the most recent of2 resultswithin the time period is included. HCG, Ur POC Negative Negative POC hCG Int QC Pass? Yes Yes Urine Urine specimen obtained by clean catch procedure / Unknown 12/21/2024 4:08 PM EDT Jude Stearns MD POINT OF CARE TEST ENTER/ EDIT ORDERABLES Final Result * (ABNORMAL) Urinalysis with reflex microscopic (12/21/2024 4:02 PM EDT) Pathologist [facility] Specific [place] Urine 1.026 1.003 - 1.030 LAB URINALYSIS - AUTOMATED METHOD 12/21/2024 5:27 PM [facility] pH, Urine 6.0 5.0 - 8.0 pH LAB URINALYSIS - AUTOMATED METHOD 12/21/2024 5:27 PM [facility] Leukocytes, Urine Moderate(A) Negative LAB URINALYSIS - AUTOMATED METHOD 12/21/2024 5:27 PM [facility] Nitrite, Urine Positive(A) Negative LAB URINALYSIS - AUTOMATED METHOD 12/21/2024 5:27 PM [facility] Protein, Urine 300(A) <=Trace mg/dL LAB URINALYSIS - AUTOMATED METHOD 12/21/2024 5:27 PM [facility] Glucose, Urine Negative Negative mg/dL LAB URINALYSIS - AUTOMATED METHOD 12/21/2024 5:27 PM [facility] Ketones, Urine >=80(A) Negative mg/dL LAB URINALYSIS - AUTOMATED METHOD 12/21/2024 5:27 PM [facility] Urobilinogen , Urine 2.0(A) 0.2 - 1.0 mg/dL LAB URINALYSIS - AUTOMATED METHOD 12/21/2024 5:27 PM [facility] Bilirubin, Urine Negative Negative LAB URINALYSIS - AUTOMATED METHOD 12/21/2024 5:27 PM [facility] Blood, Urine Moderate(A) Negative LAB URINALYSIS - AUTOMATED METHOD 12/21/2024 5:27 PM [facility] RBC, Urine 55.2(H) 0 - 4 /HPF LAB URINALYSIS - AUTOMATED METHOD 12/21/2024 5:27 PM [facility] WBC, Urine 89.2(H) 0 - 4 /HPF LAB URINALYSIS - AUTOMATED METHOD 12/21/2024 5:27 PM [facility] Squamous Epithelial, Urine >100(H) 0 - 60 /LPF LAB URINALYSIS - AUTOMATED METHOD 12/21/2024 5:27 PM [facility] Bacteria, Urine Many(A) Negative /HPF LAB URINALYSIS - AUTOMATED METHOD 12/21/2024 5:27 PM [facility] Hyaline Casts, Urine 33.7(H) 0 - 3 /LPF LAB URINALYSIS - AUTOMATED METHOD 12/21/2024 5:27 PM [facility] Other Casts, Urine 2-5 Coarse Granular casts. /LPF LAB URINALYSIS - AUTOMATED METHOD 12/21/2024 5:27 PM [facility] Urine Urine specimen obtained by clean catch procedure / Unknown Non-blood Collection / Unknown 12/21/2024 4:02 PM EDT 12/21/2024 4:42 PM EDT Jude Stearns MD LAB URINE ORDERABLES Anastasia l Result [facility] [address] [place] [address], * (ABNORMAL) Manual differential (12/21/2024 3:47 PM EDT) Neutrophils % 88.0 % LAB HEMETOLOGY METHOD 12/21/2024 4:46 PM EDT [facility] Bands % 2.0 % LAB HEMETOLOGY METHOD 12/21/2024 4:46 PM EDT [facility] Lymphocytes % 7.0 % LAB HEMETOLOGY METHOD 12/21/2024 4:46 PM EDT [facility] Monocytes % 3.0 % LAB HEMETOLOGY METHOD 12/21/2024 4:46 PM EDT [facility] Eosinophils % 0.0 % LAB HEMETOLOGY METHOD 12/21/2024 4:46 PM EDT [facility] Basophils % 0.0 % LAB HEMETOLOGY METHOD 12/21/2024 4:46 PM EDT [facility] Neutrophils Absolute Manual 17.86(H) 1.50 - 7.00 K/mcL LAB HEMETOLOGY METHOD 12/21/2024 4:46 PM EDT [facility] Bands Absolute Manual 0.41(H) 0.00 - 0.00 K/mcL LAB HEMETOLOGY METHOD 12/21/2024 4:46 PM EDT [facility] Lymphocytes Absolute 1.42 1.00 - 5.00 K/mcL LAB HEMETOLOGY METHOD 12/21/2024 4:46 PM EDT [facility] Monocytes Absolute Manual 0.61 0.20 - 1.00 K/mcL LAB HEMETOLOGY METHOD 12/21/2024 4:46 PM EDT [facility] Eosinophils Absolute Manual 0.00 0.00 - 0.50 K/mcL LAB HEMETOLOGY METHOD 12/21/2024 4:46 PM EDT [facility] Basophils Absolute Manual 0.00 0.00 - 0.20 K/mcL LAB HEMETOLOGY METHOD 12/21/2024 4:46 PM EDT [facility] Rbc Morphology Consistent with indices Consistent with indices, Normal for LAB HEMETOLOGY METHOD 12/21/2024 4:46 PM EDT [facility] Platelet Morphology - WAM Normal Normal LAB HEMETOLOGY METHOD 12/21/2024 4:46 PM EDT [facility] Toxic Granules Present Present(A) (none) LAB HEMETOLOGY METHOD 12/21/2024 4:46 PM EDT [facility] Blood Venous blood specimen / Unknown Venipuncture / Unknown 12/21/2024 3:47 PM EDT 12/21/2024 4:03 PM EDT us Jude Stearns MD LAB BLOOD ORDERABLES Anastasia l Result [facility] [address] [place] [address], * (ABNORMAL) Comprehensive Metabolic Panel (CMP) (12/21/2024 3:47 PM EDT) Only the most recent of2 resultswithin the time period is included. Sodium 133 133 - 145 mmol/L LAB CHEMISTRY METHOD 12/21/2024 4:30 PM EDT [facility] Potassium 3.8 3.5 - 5.5 mmol/L LAB CHEMISTRY METHOD 12/21/2024 4:30 PM EDT [facility] Chloride 99 96 - 110 mmol/L LAB CHEMISTRY METHOD 12/21/2024 4:30 PM [facility] CO2 20(L) 21 - 32 mmol/L LAB CHEMISTRY METHOD 12/21/2024 4:30 PM [facility] Anion Gap 14(H) 3 - 11 LAB CHEMISTRY METHOD 12/21/2024 4:30 PM [facility] Glucose 119(H) 70 - 100 mg/dL LAB CHEMISTRY METHOD 12/21/2024 4:30 PM [facility] BUN 9 5 - 25 mg/dL LAB CHEMISTRY METHOD 12/21/2024 4:30 PM [facility] Creatinine 0.75 0.50 - 1.10 mg/dL LAB CHEMISTRY METHOD 12/21/2024 4:30 PM [facility] eGFR 103 >=60 mL/min/1. 73m2 LAB CHEMISTRY METHOD 12/21/2024 4:30 PM [facility] Comment:Calculation based on the Chronic Kidney Disease Epidemiology Collaboration (CKD-EPI) equation refit without adjustment for race. BUN/Creatinine Ratio 12.0 LAB CHEMISTRY METHOD 12/21/2024 4:30 PM [facility] Calcium 9.6 8.5 - 10.5 mg/dL LAB CHEMISTRY METHOD 12/21/2024 4:30 PM [facility] AST (SGOT) 26 10 - 42 unit/L LAB CHEMISTRY METHOD 12/21/2024 4:30 PM [facility] ALT (SGPT) 25 10 - 60 unit/L LAB CHEMISTRY METHOD 12/21/2024 4:30 PM [facility] Alkaline Phosphatase 110 42 - 121 unit/L LAB CHEMISTRY METHOD 12/21/2024 4:30 PM [facility] Total Protein 8.0 6.0 - 8.0 g/dL LAB CHEMISTRY METHOD 12/21/2024 4:30 PM EDT [facility] Albumin 4.0 3.2 - 5.0 g/dL LAB CHEMISTRY METHOD 12/21/2024 4:30 PM EDT [facility] Total Bilirubin 1.3 0.0 - 1.4 mg/dL LAB CHEMISTRY METHOD 12/21/2024 4:30 PM EDT [facility] Blood Venous blood specimen / Unknown Venipuncture / Unknown 12/21/2024 3:47 PM EDT 12/21/2024 4:03 PM EDT us Jude Stearns MD LAB BLOOD ORDERABLES Anastasia harrington Result [facility] [address] [place] [address], [place] [phone] * CT Abdomen Pelvis w Contrast (10/14/2024 8:34 PM EDT) Anatomical Region Laterality Modality Body Computed Tomogra phy 10/14/2024 9:21 PM EDT Impressions 10/14/2024 9:21 PM EDT 1. Obstructive 7 mm distal right ureteric calculus with moderate to severe upstream hydroureteronephrosis. 2. Additional findings as described. This document has been electronically signed by: Reggie Sarah MD on 10/14/2024 21:21:26 Narrative 10/14/2024 9:21 PM EDT INDICATION: RLQ abdominal pain, appendicitis suspected (Age >= 13y) CT abdomen and pelvis with contrast Comparison: None provided Findings: Small hiatal hernia. Hepatomegaly. Bilateral hypodense innumerable renal cysts. Obstructive 7 mm distal right ureteric calculus with moderate to severe upstream hydroureteronephrosis. Prominent right renal parenchymal edema with delayed nephrograms and perinephric fluid stranding. Reactive/inflammatory or infectious etiologies considered, should be correlated clinically. Nonobstructive left lower pole clustered renal calculi measuring no more than 5 mm. Nonobstructive 6 mm left ureteropelvic junction calculus. Submucosal fatty deposition throughout the colon can be seen with chronic inflammation. No acute inflammatory changes. Scattered colonic diverticulosis without diverticulitis or colitis. Normal appendix. Possible left corpus luteum cyst measuring 2.3 cm. Probable tiny bone island along the posterior vertebral body L1. No acute fracture. Prominent epicardial fat pad. Postcholecystectomy. Scattered air in the endovaginal canal, nonspecific. Procedure Note Reggie Sarah MD - 10/14/2024 INDICATION: RLQ abdominal pain, appendicitis suspected (Age >= 13y) [address] abdomen and pelvis with contrast Comparison: None provided Findings: Small hiatal hernia. Hepatomegaly. Bilateral hypodense innumerable renal cysts. Obstructive 7 mm distal right ureteric calculus with moderate to severe upstream hydroureteronephrosis. Prominent right renal parenchymal edema with delayed nephrograms and perinephric fluid stranding. Reactive/inflammatory or infectious etiologies considered, should be correlated clinically. Nonobstructive left lower pole clustered renal calculi measuring no more than 5 mm. Nonobstructive 6 mm left ureteropelvic junction calculus. Submucosal fatty deposition throughout the colon can be seen withchronic inflammation. No acute inflammatory changes. Scattered colonic diverticulosis without diverticulitis or colitis.Normal appendix. Possible left corpus luteum cyst measuring 2.3 cm. Probable tiny bone island along the posterior vertebral body L1. No acute fracture. Prominent epicardial fat pad. Postcholecystectomy. Scattered air in the endovaginal canal, nonspecific. IMPRESSION: 1. Obstructive 7 mm distal right ureteric calculus with moderate tosevere upstream hydroureteronephrosis. 2. Additional findings as described. This document has been electronically signed by: Reggie Sarah MD on 10/14/2024 21:21:26 Jax Crandall MD IM CT PROCEDURES Final Result * Lipase (10/14/2024 6:42 PM EDT) Lipase 26 13 - 75 unit/L LAB CHEMISTRY METHOD 10/14/2024 7:28 PM EDT [facility] Blood Venous blood specimen / Unknown Venipuncture / Unknown 10/14/2024 6:42 PM EDT 10/14/2024 6:58 PM EDT us Jax Crandall MD LAB BLOOD ORDERABLES Final Resu lt [facility] [address] [place] [address], [place] [phone] * (ABNORMAL) Urinalysis with reflex microscopic and culture (10/14/2024 5:26 PM EDT) Specific [place] Urine >=1.030 1.003 - 1.030 LAB URINALYSIS - AUTOMATED METHOD 10/14/2024 6:21 PM [facility] pH, Urine 6.0 5.0 - 8.0 pH LAB URINALYSIS - AUTOMATED METHOD 10/14/2024 6:21 PM [facility] Leukocytes, Urine Negative Negative LAB URINALYSIS - AUTOMATED METHOD 10/14/2024 6:21 PM [facility] Nitrite, Urine Negative Negative LAB URINALYSIS - AUTOMATED METHOD 10/14/2024 6:21 PM [facility] Protein, Urine 100(A) <=Trace mg/dL LAB URINALYSIS - AUTOMATED METHOD 10/14/2024 6:21 PM [facility] Glucose, Urine Negative Negative mg/dL LAB URINALYSIS - AUTOMATED METHOD 10/14/2024 6:21 PM [facility] Ketones, Urine 40(A) Negative mg/dL LAB URINALYSIS - AUTOMATED METHOD 10/14/2024 6:21 PM [facility] Urobilinogen, Urine 0.2 0.2 - 1.0 mg/dL LAB URINALYSIS - AUTOMATED METHOD 10/14/2024 6:21 PM [facility] Bilirubin, Urine Negative Negative LAB URINALYSIS - AUTOMATED METHOD 10/14/2024 6:21 PM [facility] Blood, Urine Large(A) Negative LAB URINALYSIS - AUTOMATED METHOD 10/14/2024 6:21 PM EDT [facility] RBC, Urine 6.7(H) 0 - 4 /HPF LAB URINALYSIS - AUTOMATED METHOD 10/14/2024 6:21 PM EDT [facility] WBC, Urine 40.7(H) 0 - 4 /HPF LAB URINALYSIS - AUTOMATED METHOD 10/14/2024 6:21 PM EDT [facility] Squamous Epithelial, Urine 71(H) 0 - 60 /LPF LAB URINALYSIS - AUTOMATED METHOD 10/14/2024 6:21 PM EDT [facility] Bacteria, Urine Few(A) Negative /HPF LAB URINALYSIS - AUTOMATED METHOD 10/14/2024 6:21 PM EDT [facility] Hyaline Casts, Urine 11.6(H) 0 - 3 /LPF LAB URINALYSIS - AUTOMATED METHOD 10/14/2024 6:21 PM T [facility] Urine Urine specimen obtained by clean catch procedure / Unknown Non-blood Collection / Unknown 10/14/2024 5:26 PM EDT 10/14/2024 5:31 PM EDT us Jax Crandall MD LAB URINE ORDERABLES Final Resu lt Performing Organization Address City/[facility] Co de Phone Number [facility] [address] [place] [address], * Carpenter urine culture tube (10/14/2024 5:26 PM EDT) Extra Tube Hold for add-ons. 10/14/2024 7:01 PM EDT [facility] Comment:Auto resulted. Urine Urine specimen obtained by clean catch procedure / Unknown Non-blood Collection / Unknown 10/14/2024 5:26 PM EDT 10/14/2024 5:31 PM EDT us Jax Crandall MD LAB URINE ORDERABLES Final Resu lt [facility] [address] [place] [address], [place] [phone] from Last 3 Months Insurance [facility] MEDICAID ADVANTAGE Advance Directives * Full Code - Confirmed (Latest Code Status on File) Date Activated Date Inactivated Comments 12/21/2024 7:10 PM 12/25/2024 6:[address] at[facility] was ascertained in the following way: Code status discussion: discussion with patient To update the patient's code status, place a code status order. Do not modify or discontinue any currently active code status orders. * Full Code - Confirmed Date Activated Date Inactivated Comments 12/21/2024 6:08 PM 12/21/2024 7:[address] atus was ascertained in the following way: Code status discussion: discussion with patient To update the patient's code status, place a code status order. Do not modify or discontinue any currently active code status orders. Care Teams Installation Tech Relationship Specialty Start Date End Date Physician, Pcp Unknown PCP - General 12/21/24
--- OUTSIDE RECORDS SUMMARY | 2024-12-31 19:07 | XMS_ITS | Encounter Summary ---
Author Organization [facility] Address [address] [place] [address] Care Team Providers Care Women'S Apparel Salesperson Name Role Phone Physician, Pcp Unknown Primary Care Provider Giselle vailable Reason for Visit * Reason Onset Date Comments trough/dose 12/30/2024 Encounter Details Date Type Department Care Team (Late st Contact Info) Description 12/30/2024 Telephone Infectious Disease - [place] [address] [place] [address] Jose L Chahal LPN Social History Tobacco Use Types Packs/Day Years [...] on file documented as of this encounter Progress Notes * Marge Vick RN - 12/30/2024 11:59 AM EDT I consulted Dr. Lam. I left message with Mara and dose increased to 1.25 g Q8. * Jose L Chahla LPN - 12/30/2024 10:33 AM EDT Mara from [facility] reports trough: 14.2 & creatinine: 0.65 for pt administered [id number] Q8hr. Questions if current dose will continue. Mara: [phone] documented in this encounter Plan of Treatment Not on file documented as of this encounter Visit Diagnoses Not on filedocumented in this encounter Care Teams Women'S Apparel Salesperson Relationship Specialty Start Date End Date Physician, Pcp Unknown PCP - General 12/21/24 documented as of this encounter
[2024-12-31 19:10] LABS: Anion Gap 15 (12-20); Blood Urea Nitrogen 10 mg/dL (9-16); Calcium 8.9 mg/dL (8.4-10.2); Carbon Dioxide 27 mmol/L (22-29); Chloride 105 mmol/L (96-108); Estimated Glomerular Filt Rate > 60; Potassium 4.0 mmol/L (3.3-5.1); Sodium 143 mmol/L (135-145)
== END 2024-12-31 17:38 | disposition home or self-care (01) ==
LOC: HO.LNP 17:37
PROVIDERS: Visit Provider Physician Assistant
DX: N10 Acute pyelonephritis (principal); N12 Tubulo-interstitial nephritis, not specified as acute or chronic
CPT/HCPCS: 80048; 80202; 85025